=== PATIENT | male | born 1965 | race Hispanic/Latino ===

== ENCOUNTER 2017-07-03 08:40 | Outpatient (CLI) | payer OTHER ==
--- NOTE | 2017-07-03 09:36 | Cat Scan Report ---
CT HEAD WITHOUT CONTRAST: 07/03/17 08:40:00 CLINICAL: Visual aura. TECHNIQUE: 2.5-mm noncontrast scans. COMPARISON:None FINDINGS: The ventricles and sulci are normal for age. No abnormal density. No mass or mass effect. No hemorrhage, edema or extra-axial collection. The vascular structures are normal. The The sinuses are clear. Normal orbits and soft tissues. The calvarium and skull base are intact. IMPRESSION: Normal study.
== END 2017-07-03 08:41 | disposition home or self-care (01) ==
LOC: SPVIMAG 08:40
PROVIDERS: ATTEND Internal Medicine
DX: G43.109 Migraine with aura, not intractable, without status migrainosus (principal)
CPT/HCPCS: 70450